=== PATIENT | male | born 1975 | race Caucasian/White ===

== ENCOUNTER 2016-12-05 03:11 | Emergency (ER) | payer MEDICAID ==
[~2016-12-05] VITALS: Ht 167.6 cm; Wt 75.0 kg
[2016-12-05 03:26] VITALS: Ht 167.6 cm; Wt 75.0 kg
[2016-12-05] MEDS ORDERED: DIPHENHYDRAMINE 50 MG INJ IM ONE (04:30)
[2016-12-05] MEDS ORDERED: HALOPERIDOL 5 MG INJ IM ONE (04:30)
[2016-12-05] MEDS ORDERED: LORAZEPAM 2 MG INJ IM ONE (04:30)
[2016-12-05 06:05] LABS: BARBITURATES Negative (NEGATIVE); BENZODIAZEPINES Negative (NEGATIVE); CANNABINOIDS Negative (NEGATIVE); COCAINE Negative (NEGATIVE); OPIATES Negative (NEGATIVE)
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
[2016-12-05 08:46] VITALS: BP 105/56; PULSE 76; RESP 18; TEMP 98.2
== END 2016-12-05 08:45 | disposition home or self-care (01) ==
LOC: E/R 03:11 → MERGE 03:11 → EDBD 03:11 → E/R 08:45
DX: F15.120 Other stimulant abuse with intoxication, uncomplicated (principal)
CPT/HCPCS: 80307; 96372; P9612; Z7502

== ENCOUNTER 2017-01-24 19:31 | Emergency (ER) | payer MEDICAID, OTHER ==
[~2017-01-24] VITALS: Ht 170.2 cm; Wt 63.9 kg
[2017-01-24 20:20] VITALS: Ht 170.2 cm; Wt 63.9 kg
[2017-01-24] MEDS ORDERED: BEN50 PO (23:49)
[2017-01-24] MEDS ORDERED: PRED50TA PO (23:49)
--- NOTE | 2017-01-24 23:51 | ERD ---
ER Documentation Chief Complaint Chief Complaint rash for 1 week, + itching, worse today denies pain HPI 89-year-old male presents with an itchy rash that he has had all over his body for 1 week. He has not taken any medication. No swelling of the lip or tongue or difficulty breathing. No new suit food soaps or irritants he can think of no pain only itchiness. No fever. ROS All systems reviewed and are negative except as per history of present illness. Medications Home Meds Active Scripts Diphenhydramine Hcl* (Benadryl*) 50 Mg Cap, 50 MG PO Q6 Y for ITCHING, #30 CAP Prov:CELSO PIERCE PA-C 01/24/17 Prednisone* (Prednisone*) 50 Mg Tablet, 50 MG PO DAILY for 4 Days, TAB Prov:CELSO PIERCE PA-C 01/24/17 Allergies Allergies: Coded Allergies: Unknown: Unable to obtain (Unverified , 12/08/16) PMhx/Soc Hx Alcohol Use: Yes Hx Substance Use: Yes Hx Tobacco Use: Yes FmHx Family History: No diabetes Physical Exam Vitals Vital Signs Date Time Temp Pulse Resp B/P Pulse Ox O2 Delivery O2 Flow Rate FiO2 01/24/17 20:20 98.0 70 18 139/79 98 Physical Exam Const: [] Head: Atraumatic Eyes: Normal Conjunctiva ENT: Normal External Ears, Nose and Mouth. Neck: Full range of motion..~ No meningismus. Resp: Clear to auscultation bilaterally Cardio: Regular rate and rhythm, no murmurs Abd: Soft, non tender, non distended. Normal bowel sounds Skin: Supple scaly macular papular rash all over upper and lower extremities as well as chest wall and abdomen, blanchable Procedures/MDM 41-year-old presents with a rash does appear to be eczema. Discharge with prednisone and Benadryl. Patient counseled regarding my diagnostic impression and care plan. Prior to discharge all questions answered. Pt agrees with treatment plan and understands strict return precautions. Pt is instructed to follow up with primary care provider within 24-48 hours. Precautionary instructions provided including instructions to return to the ER if not improving or for any worsening or changing symptoms or concerns. Departure Diagnosis: Primary Impression: Rash Condition: Stable Patient Instructions: Self-Care for Skin Rashes Additional Instructions: Call your primary care doctor TOMORROW for an appointment during the next 1-2 days.See the doctor sooner or return here if your condition worsens before your appointment time. CELSO PIERCE PA-C Jan 24, 2017 23:51
== END 2017-01-24 23:56 | disposition home or self-care (01) ==
LOC: FTE 19:31
DX: R21 Rash and other nonspecific skin eruption (principal); Z87.891 Personal history of nicotine dependence
CPT/HCPCS: 99283